=== PATIENT | male | born 1970 | race Caucasian/White ===

== ENCOUNTER 2016-04-14 12:41 | Emergency (ER) | payer BC, OTHER ==
[~2016-04-14] VITALS: Ht 172.7 cm; Wt 103.2 kg
[~2016-04-14 12:41] MED LIST: KLN5 PO; SERT1TAB92 PO
[2016-04-14 12:49] VITALS: TEMP 36.4; Ht 172.7 cm; Wt 103.2 kg
[2016-04-14] MEDS ORDERED: VENL37.593 PO (13:19)
[2016-04-14] MEDS ORDERED: LISI-461 PO (13:19)
--- NOTE | 2016-04-14 13:22 | EMERGENCY ROOM VISIT NOTE ---
ED Visit Note First contact with patient: 13:03 CHIEF COMPLAINT: Head injury HISTORY OF PRESENT ILLNESS: This 45-year-old male patient presented to the emergency department ambulatory after receiving a head injury at work when he was bent over and stood up and hit the left side of his head on a machine. He did not fall to the ground. There was no brief loss of consciousness or vomiting. No difficulty with speech. The headache has been mild and is improving. The patient complains of no neck pain. No loss of appetite or unusual behavior since the injury. The patient has taken ibuprofen for the pain. The patient rates the pain as 5/10 and mild. The patient denies any changes in their vision or hearing. The patient denies bowel or bladder dysfunction. The patient denies abdominal pain. The patient was seen at [facility] and sent to the emergency department for further evaluation and management REVIEW OF SYSTEMS: A 6 system review of systems was completed with positives and pertinent negatives listed in the HPI. ALLERGIES: No known drug allergies MEDICATIONS: Lisinopril PMH: Hypertension SOCIAL HISTORY: The patient lives locally. He does not smoke. He is employed PHYSICAL EXAM: Vital Signs: Reviewed Nurse's notes, vital signs stable. GENERAL : This is a 45-year-old male, in no acute distress, well-developed, well- nourished. NEURO: The patient is alert, oriented to person place and time, and coherent. Normal mini mental status exam. Negative Romberg and pronator drift. Cerebellar function intact. HEAD: There is a small abrasion to the left side of the head without laceration, edema, ecchymosis or significant tenderness. EYES: Pupils are equal round and reactive to light and accommodation. EOMs are full and optic discs and fundi are normal. There is no swelling or discoloration of the tissue surrounding the eyes. EARS: External auditory canals clear without blood. NOSE: Patent without tenderness. No septal hematoma. FACE: No facial tenderness. NECK: Supple. There is no cervical spine tenderness. The patient does not have tenderness with movement of the neck. ED COURSE: I examined the patient. The patient stood up and struck his head on a machine at work. He did not fall to the ground. He did not have loss of consciousness. He states that he initially had some trouble focusing but that has resolved. He denies any nausea or vomiting. He denies any confusion. He denies blurry vision. The patient was seen at [facility] and sent to the emergency department for further evaluation and management. Given the patient' s mechanism of injury, signs and symptoms, the likelihood of intracranial bleeding or skull fracture is considered unlikely. I did offer to perform a CT scan of the brain as he was sent here for imaging. The patient is in agreement to defer imaging at this time. He was advised to return immediately with any vomiting, severe headache or generalized worsening symptoms. He will be following up with [facility] on Tuesday. The patient was discharged home in good condition ambulatory. DIAGNOSIS: Head injury Problem List Medical Problems: (1) Anxiety Status: Chronic (2) Depression Status: Chronic Current/Historical Medications Scheduled Lisinopril (Zestril), 10 MG PO DAILY Venlafaxine Hcl (Venlafaxine Extended Rel), 37.5 MG PO DAILY Allergies Coded Allergies: No Known Allergies (Unverified , 04/14/16) Vital Signs Date Time Temp Pulse Resp B/P Pulse Ox O2 Delivery O2 Flow Rate FiO2 04/14/16 13:37 75 18 140/95 98 04/14/16 12:49 36.4 72 18 147/101 98 Room Air Departure Information Impression Primary Impression: Closed head injury Dispostion Home / Self-Care Condition GOOD Referrals No Doctor, Assigned (PCP) Patient Instructions ED Head Injury Closed, My [facility] Additional Instructions Ibuprofen 600 mg every 6-8 hours or moderate pain Follow up with [facility] on Tuesday Return with any worsening symptoms, severe headache, vomiting or generalized worsening symptoms Contact the concussion clinic at [facility] ([phone]) to schedule a follow-up appointment for further evaluation and management. Their office is located at [address] [place] [address]. [address] No gym or athletics for one week after symptoms resolve Problem Qualifiers Primary Impression: Closed head injury Encounter type: initial encounter Qualified Codes: S09.90XA - Unspecified injury of head, initial encounter
[2016-04-14 13:37] VITALS: BP 140/95; PULSE 75; O2SAT 98
== END 2016-04-14 13:39 | disposition home or self-care (01) ==
LOC: C.EDB 12:42 → C.EDD 13:39
DX: S09.90XA Unspecified injury of head, initial encounter (principal); W22.8XXA Striking against or struck by other objects, initial encounter; I15.9 Secondary hypertension, unspecified

== ENCOUNTER 2016-09-09 14:18 | Emergency (ER) | payer OTHER ==
[~2016-09-09] VITALS: Ht 172.7 cm; Wt 100.8 kg
[~2016-09-09 14:18] MED LIST changes: -KLN5 PO; +LISI-461 PO; -SERT1TAB92 PO; +VENL37.593 PO
[2016-09-09 14:33] VITALS: TEMP 37.1; Ht 172.7 cm; Wt 100.8 kg
[2016-09-09] MEDS ORDERED: SERT-234 PO (15:00)
[2016-09-09] MEDS ORDERED: KETOROLAC TROMETHAMINE 30 MG/ML VIAL IV STA (15:08)
[2016-09-09] MEDS ORDERED: DiphenhydrAMINE HCL 50 MG/ML VIAL IV STA (15:08)
[2016-09-09] MEDS ORDERED: PROCHLORPERAZINE 5 MG/ML 2 ML VIAL IV STA (15:08)
[2016-09-09] MEDS ORDERED: SODIUM CHLORIDE 0.9% 1000ML 1,000 ML IV STA (15:08)
[2016-09-09 15:17] VITALS: O2SAT 93
[2016-09-09 15:20] LABS: BASO % 0.6 %; BASO ABS # 0.04 K/uL (0-0.2); COMPLETE YES; EOS % 6.5 %; HEMATOCRIT 39.3 % (42-52); IG% 0.1 %; LYMPH % 28.1 %; LYMPH ABS # 1.98 K/uL (1.2-3.4); MEAN CORPUSCULAR HEMOGLOBIN 29.7 pg (25-34); MEAN CORPUSCULAR HGB CONC 36.6 g/dl (32-36); MONO % 9.4 %; NEUT % 55.3 %; PLATELET COUNT 187 K/uL (130-400); RED BLOOD COUNT 4.85 M/uL (4.7-6.1); WHITE BLOOD COUNT 7.05 K/uL (4.8-10.8)
--- NOTE | 2016-09-09 15:23 | EMERGENCY ROOM VISIT NOTE ---
History Report prepared by Mago: Mehdi Wallace Under the Supervision of: Dr. Modesto Torres M.D. First contact with patient: 14:58 Chief Complaint: CARDIAC ASSESSMENT Stated Complaint: DIZZY, LEFT ARM NUMB, TIGHT CHEST Nursing Triage Summary: Chest tightness today. History of Present Illness The patient is a 45 year old male who presents to the Emergency Room with complaints of intermittent headache starting a few days ago. The patient has a history of headaches but reports the frequency and severity has increased. He denies it to be the worst headache of his life but he does describe the pain to be severe. About 6 hours ago, the patient had an onset of headache and then tingling in left arm, dizziness, and lightheadedness. He also has a history of tingling in left arm but it has never occurred with the headache. He denies any chest pain but reports chest tightness which resolved a few minutes ago. He was at work when he had an onset of his symptoms this morning. He had breakfast as normal this morning. He currently denies any chest pain or tightness. He currently reports lightheadedness but denies any dizziness. He denies any activities that improve or worsen his symptoms. He continues to complain of the headache and arm tingling. The patient denies any recent strenuous activities, tick bites, being outside for a prolonged period of time, or any recent travels. He denies any focal weakness, fevers, chills, nausea, vomiting, rash, or any other complaints. He had contacted [facility] who referred him to the Emergency Room. He has a history of hypertension. He denies any history of heart disease. The patient has a history of a stress test with normal results. He does not smoke cigarettes. His father had a heart attack at age 53. Source of History: patient Onset: a few days ago Position: head Symptom Intensity: severe Timing: intermittent Associated Symptoms: No fevers, No chills, No chest pain, No nausea, No vomiting, No weakness, No rash Review of Systems See HPI for pertinent positives & negatives. A total of 10 systems reviewed and were otherwise negative. Past Medical & Surgical Medical Problems: (1) Anxiety (2) Depression (3) Hypertension Family History FH: heart attack Heart disease Social History Smoking Status: Never Smoker Alcohol Use: none Drug Use: none Marital Status: Housing Status: lives with family Occupation Status: employed Current/Historical Medications Scheduled Amoxicillin & Pot Clavulanate (Augmentin 875-125 mg), 1 TAB PO BID Aspirin (Aspirin), 1 TAB PO DAILY Lisinopril (Zestril), 10 MG PO DAILY Sertraline (Zoloft), 150 MG PO DAILY Allergies Coded Allergies: No Known Allergies (Unverified , 09/09/16) Physical Exam Vital Signs Date Time Temp Pulse Resp B/P (MAP) Pulse Ox O2 Delivery O2 Flow Rate FiO2 09/09/16 17:10 75 15 118/79 98 Room Air 09/09/16 16:35 73 14 138/82 96 Room Air 09/09/16 15:24 77 128/74 98 133/84 100 132/85 09/09/16 15:17 93 Room Air 09/09/16 15:17 93 Room Air 09/09/16 14:49 92 Room Air 09/09/16 14:33 37.1 80 23 151/92 93 Room Air 09/09/16 14:33 85 Physical Exam GENERAL: Patient is a healthy-appearing well-nourished HEAD: Normocephalic atraumatic EYES: Ocular movements intact pupils equal and react to light OROPHARYNX mucous membranes are moist no exudates present no erythema or edema present NECK: Supple no nuchal rigidity CHEST: Good equal expansion LUNGS: Clear and equal to auscultation CARDIAC: Normal S1 and S2 ABDOMEN: Soft nontender no guarding BACK: No CVA tenderness EXTREMITIES: No pain upon palpation normal muscle strength in all groups no clubbing cyanosis or edema NEURO: Patient is following commands and answering questions appropriately. Alert and oriented x3 Cranial Nerves 2-12 grossly intact Medical Decision & Procedures ER Provider Diagnostic Interpretation: X-ray results as stated below per interpretation by me and the radiologist: CHEST ONE VIEW PORTABLE CLINICAL HISTORY: 45 years-old Male presenting with Pt c/o left arm numbness. TECHNIQUE: Portable upright AP view of the chest was obtained. COMPARISON: None. FINDINGS: Cardiomediastinal silhouette normal. Lungs and pleural spaces clear. Osseous structures and upper abdomen normal. IMPRESSION: 1. No acute cardiopulmonary disease. Electronically signed by: Joshua Edmonds M.D. 09/09/2016 3:59 PM Dictated Date/Time: 09/09/2016 3:[address] results as stated below per my review and radiologist interpretation: HEAD WITHOUT CONTRAST (CT) CLINICAL HISTORY: 45 years-old Male with Pt c/o headache, left arm tingling. TECHNIQUE: Multiple axial CT images of the head were obtained without contrast. A dose lowering technique was utilized adhering to the principles of ALARA. CT DOSE: 729.78 mGycm COMPARISON: None. FINDINGS: No acute intracranial hemorrhage, midline shift, mass, large territorial ischemia or abnormal extra-axial collection. There is atherosclerotic plaquing of the carotid vasculature at the level the skull base. There is tortuosity of the basilar artery. Ill-defined areas of low-attenuation are seen within the bhagat radiata at the level of the frontal horns bilaterally as seen on image 19 of the axial series. No evidence of territorial ischemia. The calvarium is intact. The mastoid air cells, and middle ear cavities are clear. There is moderate ethmoid and maxillary sinus disease. IMPRESSION: 1. No acute intracranial hemorrhage or territorial ischemia. 2. Ill-defined areas of low-attenuation within the bhagat radiata at the level of the frontal horns bilaterally are nonspecific findings and may reflect early chronic microvascular ischemic changes among other etiologies and are age indeterminate without comparison. 3. Moderate paranasal sinus disease. The above report was generated using voice recognition software. It may contain grammatical, syntax or spelling errors. Electronically signed by: Jono Wahl M.D. 09/09/2016 4:37 PM Dictated Date/Time: 09/09/2016 4:35 PM Laboratory Results 09/09/16 14:40 Red Blood Count 4.85, Mean Corpuscular Volume 81.0, Mean Corpuscular Hemoglobin 29.7, Mean Corpuscular Hemoglobin Concent 36.6, Mean Platelet Volume 10.0, Neutrophils (%) (Auto) 55.3, Lymphocytes (%) (Auto) 28.1, Monocytes (%) (Auto) 9.4, Eosinophils (%) (Auto) 6.5, Basophils (%) (Auto) 0.6, Neutrophils # (Auto) 3.90, Lymphocytes # (Auto) 1.98, Monocytes # (Auto) 0.66, Eosinophils # (Auto) 0.46, Basophils # (Auto) 0.04 09/09/16 14:40 Test 09/09/16 14:40 09/09/16 15:22 09/09/16 16:34 White Blood Count 7.05 K/uL (4.8-10.8) Red Blood Count 4.85 M/uL (4.7-6.1) Hemoglobin 14.4 g/dL (14.0-18.0) Hematocrit 39.3 % (42-52) Mean Corpuscular Volume 81.0 fL (80-100) Mean Corpuscular Hemoglobin 29.7 pg (25-34) Mean Corpuscular Hemoglobin Concent 36.6 g/dl (32-36) Platelet Count 187 K/uL (130-400) Mean Platelet Volume 10.0 fL (7.4-10.4) Neutrophils (%) (Auto) 55.3 % Lymphocytes (%) (Auto) 28.1 % Monocytes (%) (Auto) 9.4 % Eosinophils (%) (Auto) 6.5 % Basophils (%) (Auto) 0.6 % Neutrophils # (Auto) 3.90 K/uL (1.4-6.5) Lymphocytes # (Auto) 1.98 K/uL (1.2-3.4) Monocytes # (Auto) 0.66 K/uL (0.11-0.59) Eosinophils # (Auto) 0.46 K/uL (0-0.5) Basophils # (Auto) 0.04 K/uL (0-0.2) RDW Standard Deviation 40.7 fL (36.4-46.3) RDW Coefficient of Variation 13.7 % (11.5-14.5) Immature Granulocyte % (Auto) 0.1 % Immature Granulocyte # (Auto) 0.01 K/uL (0.00-0.02) Anion Gap 12.0 mmol/L (3-11) Est Creatinine Clear Calc Drug Dose 95.5 ml/min Estimated GFR () 92.2 Estimated GFR (Non- 79.5 BUN/Creatinine Ratio 12.8 (10-20) Calcium Level 8.8 mg/dl (8.5-10.1) Total Bilirubin 0.9 mg/dl (0.2-1) Direct Bilirubin 0.1 mg/dl (0-0.2) Aspartate Amino Transf (AST/SGOT) 27 U/L (15-37) Alanine Aminotransferase (ALT/SGPT) 38 U/L (12-78) Alkaline Phosphatase 82 U/L (45-117) Total Creatine Kinase 354 U/L (39-308) Creatine Kinase MB 4.0 ng/ml (0.5-3.6) Creatine Kinase MB Ratio 1.1 (0-3.0) Troponin I < 0.015 ng/ml (0-0.045) Total Protein 7.1 gm/dl (6.4-8.2) Albumin 3.9 gm/dl (3.4-5.0) Thyroid Stimulating Hormone (TSH) 1.960 uIu/ml (0.300-4.500) Lyme Disease IgG Antibody NEG (NEG) Lyme Disease IgM Antibody NEG (NEG) Bedside Glucose 111 mg/dl (70-99) Urine Color YELLOW Urine Appearance CLEAR (CLEAR) Urine pH 7.5 (4.5-7.5) Urine Specific [place] 1.017 (1.000-1.030) Urine Protein NEG (NEG) Urine Glucose (UA) NEG (NEG) Urine Ketones NEG (NEG) Urine Occult Blood NEG (NEG) Urine Nitrite NEG (NEG) Urine Bilirubin NEG (NEG) Urine Urobilinogen NEG (NEG) Urine Leukocyte Esterase NEG (NEG) Labs reviewed by ED physician. Medications Administered Medications (Trade) Dose Ordered Sig/Terry Route Start Time Stop Time Status Last Admin Dose Admin Sodium Chloride 1,000 ml @ 999 mls/hr Q1H1M STAT IV 09/09/16 15:08 09/09/16 16:08 DC 09/09/16 15:08 999 MLS/HR Ketorolac Tromethamine (Toradol Inj) 30 mg NOW STAT IV 09/09/16 15:08 09/09/16 15:11 DC 09/09/16 15:27 30 MG Prochlorperazine Edisylate (Compazine Inj) 10 mg NOW STAT IV 09/09/16 15:08 09/09/16 15:11 DC 09/09/16 15:26 10 MG Diphenhydramine HCl (Benadryl Inj) 50 mg NOW STAT IV 09/09/16 15:08 09/09/16 15:11 DC 09/09/16 15:27 50 MG Amoxicillin/ Clavulanate Potassium (Augmentin Tab) 875 mg ONE ONCE PO 09/09/16 17:00 09/09/16 17:01 DC 09/09/16 17:18 875 MG Sodium Chloride ([place] Nasal [place]) 2 sprays NOW STAT NA 09/09/16 16:51 09/09/16 16:52 DC 09/09/16 17:18 2 SPRAYS ECG Indication: other (Numbness) Rate (beats per minute): 80 Rhythm: sinus rhythm Findings: no acute ischemic change, no ectopy, other (Short [place]) ED Course 1458: Past medical records reviewed. The patient was evaluated in room C01B. A complete history and physical examination was performed. 1508: Benadryl Inj 50 mg IV, Compazine Inj 10 mg IV, Toradol Inj 30 mg IV, Sodium Chloride 1000 ml @ 999 mls/hr IV 1651: Sodium Chloride 2 sprays NA 1700: Augmentin Tab 875 mg PO. Upon reexamination the patient is resting comfortably. I discussed results and treatment plan with the patient. He verbalizes agreement and understanding. The patient is ready for discharge. Medical Decision Differential diagnosis: Etiologies such as migraine headache, meningitis, sinusitis, CO exposure, ICH, SAH, infection, tumor, headache, sinus thrombosis, arterial dissection, as well as others were entertained. History: Slightly suspicious (0) Moderately suspicious (+1) Highly suspicious (+2) EKG: Normal (0) No ST depression but LBBB, LVH, repolarization changes +[address] depression +2 Age: <45 (0) 45-65 (+1) >65 (+2) Risk factors HTN, hypercholesterolemia, DM, obesity (BMI >30 kg/m), smoking, Positive family hx; atherosclerotic disease: prior AK, PCI/CABG, CVA/TIA or peripheral artery disease 1-2 risk factors +1 >3 risk factors: +2 Initial Troponin: 1-2x normal limit:+1 >2 normal limit =2 3 points Low Score (0-3 points) Risk of MACE of 0.9-1.7%. This is a 45-year-old male presents emergency Department with multiple complaints. Patient is complaining of a headache along with left arm numbness. His heart Scale is 3 points with a normal troponin and normal EKG. Based on these findings and the fact that the patient's symptoms resolved using a migraine cocktail I feel that the patient can be safely discharged home. 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 I also felt that the patient concert taking 81 mg of aspirin a day however I instructed him to follow-up with his PCP for this. In addition I will refer the patient to a requisition approver. He was also placed on an antibiotic for what appears to be sinusitis and I believe this may be causing a lot of his symptoms. Patient was in agreement with the treatment plan. Medication Reconcilliation Current Medication List: was personally reviewed by me Blood Pressure Screening Patient's blood pressure: Elevated blood pressure Blood pressure disposition: Referred to PCP Impression Primary Impression: Headache Additional Impression: Sinusitis Scribe Attestation The scribe's documentation has been prepared under my direction and personally reviewed by me in its entirety. I confirm that the note above accurately reflects all work, treatment, procedures, and medical decision making performed by me. Departure Information Dispostion Home / Self-Care Prescriptions Aspirin (ASPIRIN) 81 Mg Chw 1 TAB PO DAILY for 30 Days, #30 TAB Prov: Modesto Torres MD 09/09/16 Amoxicillin & Pot Clavulanate (Augmentin 875-125 mg) 1 Tab Tab 1 TAB PO BID for 10 Days, #20 TAB Prov: Modesto Torres MD 09/09/16 Referrals Karthik Jack M.D. (PCP) Emanuel Myers M.D. Forms IMPORTANT VISIT INFORMATION, School Instructions, Work Instructions Patient Instructions Hypertension Dc, My [facility], Sinusitis Acute Additional Instructions Follow up with DR Myers's office No strenuous activity until follow up You were found to have an elevated blood pressure today (>120 sytolic or >90 diastolic). Per medicare guidelines, you need to follow up with this blood pressure screening with your Primary Care Physician (PCP). For a new PCP call [phone]. You received narcotic or benzodiazepene medication while in the emergency room today. Do not drive, operate heavy machinery, or drink alcohol under the influence of this medication. You have been examined and treated today on an emergency basis only. This is not a substitute for, or an effort to provide, complete comprehensive medical care. It is impossible to recognize and treat all injuries or illnesses in a single emergency department visit. It is therefore important that you follow up closely with Dr Sutton. Call as soon as possible for an appointment. Thank you for your time and consideration. I look forward to speaking with you again soon. Please don't hesitate to call us if you have any questions. Problem Qualifiers Primary Impression: Headache Headache type: unspecified Headache chronicity pattern: unspecified pattern Intractability: not intractable Qualified Codes: R51 - Headache Additional Impression: Sinusitis Sinusitis location: unspecified location Chronicity: unspecified Qualified Codes: J32.9 - Chronic sinusitis, unspecified
--- NOTE | 2016-09-09 16:00 | DIAGNOSTIC IMAGING REPORT ---
CHEST ONE VIEW PORTABLE CLINICAL HISTORY: 45 years-old Male presenting with Pt c/o left arm numbness. TECHNIQUE: Portable upright AP view of the chest was obtained. COMPARISON: None. FINDINGS: Cardiomediastinal silhouette normal. Lungs and pleural spaces clear. Osseous structures and upper abdomen normal. IMPRESSION: 1. No acute cardiopulmonary disease. Electronically signed by: Joshua Edmonds M.D. 09/09/2016 3:59 PM Dictated Date/Time: 09/09/2016 3:58 PM
[2016-09-09 16:24] LABS: ALKALINE PHOSPHATASE 82 U/L (45-117); ALT/SGPT 38 U/L (12-78); BLOOD UREA NITROGEN 14 mg/dl (7-18); BUN/CREATININE RATIO 12.8 (10-20); CALCIUM 8.8 mg/dl (8.5-10.1); CARBON DIOXIDE 26 mmol/L (21-32); CHLORIDE 107 mmol/L (98-107); CKMB/CK RATIO 1.1 (0-3.0); GLUCOSE 96 mg/dl (70-99)
--- NOTE | 2016-09-09 16:38 | DIAGNOSTIC IMAGING REPORT ---
HEAD WITHOUT CONTRAST (CT) CLINICAL HISTORY: 45 years-old Male with Pt c/o headache, left arm tingling. TECHNIQUE: Multiple axial CT images of the head were obtained without contrast. A dose lowering technique was utilized adhering to the principles of ALARA. CT DOSE: 729.78 mGycm COMPARISON: None. FINDINGS: No acute intracranial hemorrhage, midline shift, mass, large territorial ischemia or abnormal extra-axial collection. There is atherosclerotic plaquing of the carotid vasculature at the level the skull base. There is tortuosity of the basilar artery. Ill-defined areas of low-attenuation are seen within the bhagat radiata at the level of the frontal horns bilaterally as seen on image 19 of the axial series. No evidence of territorial ischemia. The calvarium is intact. The mastoid air cells, and middle ear cavities are clear. There is moderate ethmoid and maxillary sinus disease. IMPRESSION: 1. No acute intracranial hemorrhage or territorial ischemia. 2. Ill-defined areas of low-attenuation within the bhagat radiata at the level of the frontal horns bilaterally are nonspecific findings and may reflect early chronic microvascular ischemic changes among other etiologies and are age indeterminate without comparison. 3. Moderate paranasal sinus disease. The above report was generated using voice recognition software. It may contain grammatical, syntax or spelling errors. Electronically signed by: Jono Wahl M.D. 09/09/2016 4:37 PM Dictated Date/Time: 09/09/2016 4:35 PM
[2016-09-09 16:42] LABS: SODIUM 145 mmol/L (136-145)
[2016-09-09 16:47] LABS: LYME DISEASE AB IGG NEG (NEG); LYME DISEASE AB IGM NEG (NEG)
[2016-09-09 16:51] LABS: AST/SGOT 27 U/L (15-37)
[2016-09-09] MEDS ORDERED: SODIUM CHLORIDE 0.65% NA SOLN 45 ML (OCEAN) STA (16:51)
[2016-09-09 16:52] LABS: URINE APPEARANCE CLEAR (CLEAR); URINE BILIRUBIN NEG (NEG); URINE COLOR YELLOW; URINE NITRITE NEG (NEG); URINE PH 7.5 (4.5-7.5); URINE SPECIFIC GRAVITY 1.017 (1.000-1.030); UROBILINOGEN NEG (NEG)
[2016-09-09] MEDS ORDERED: ASPI81CH2 PO (16:54)
[2016-09-09] MEDS ORDERED: AMOX875T PO (16:54)
[2016-09-09] MEDS ORDERED: AMOXICILLIN/CLAVULANATE TAB 875 MG TAB PO ONE (17:00)
[2016-09-09 17:03] LABS: MANUAL MICROSCOPIC REQUIRED? NO; REVIEW REQ? NO
[2016-09-09 17:10] VITALS: BP 118/79; PULSE 75; O2SAT 98
[2016-09-16 23:36] LABS: EHRLICHIA CHAFF IGG AB <1:64 (<1:64); EHRLICHIA CHAFF IGM AB <1:20 (<1:20)
== END 2016-09-09 17:26 | disposition home or self-care (01) ==
LOC: C.EDB 14:19 → C.EDC 17:26
DX: R51 Headache (principal); J32.9 Chronic sinusitis, unspecified; F41.9 Anxiety disorder, unspecified; F32.9 Major depressive disorder, single episode, unspecified; I10 Essential (primary) hypertension; Z82.49 Family history of ischemic heart disease and other diseases of the circulatory system; Z79.82 Long term (current) use of aspirin